=== PATIENT | female | born 1990 ===

== ENCOUNTER 2017-10-21 17:55 | Emergency (ER) | payer BC ==
--- NOTE | 2017-10-21 18:29 | UC ---
Back Pain HPI - HPI Summary HPI Summary: Pt presents with lower back numbness radiating down left leg for the last 11 days. She tells me that she gave vaginally 11 days ago and during labor underwent a spinal epidural. The first two or three days she had lower back pain that has subsided. But ever since has had numbness to her lower back around the site of the injection, into her left buttocks, and down her left leg - also has noticed her left foot is not flexing upwards as strongly as her right. Her numbness and foot weakness have been improving each day, but she is concerned about the numbness overall. She was seen in the ED last week for this and was told it was a muscle spasm or due to the epidural. Denies fever, chills , pain, dysuria, loss of bladder/bowel control, saddle anesthesia, headache, or dizziness. - History of Current Complaint Stated Complaint: BACK PAIN Time Seen by Provider: 10/21/17 18:29 Hx Obtained From: Patient ?: No Onset/Duration: Sudden Onset Timing: Constant Severity Currently: None - Allergies/Home Medications Allergies/Adverse Reactions: Allergies Allergy/AdvReac Type Severity Reaction Status Date / Time amoxicillin Allergy Rash Verified 10/21/17 18:47 Home Medications: Home Medications NK [No Home Medications Reported] 10/21/17 [History Confirmed 10/21/17] PMH/Surg Hx/FS Hx/Imm Hx Previously Healthy: Yes - Family History Known Family History: Positive: None - Social History Occupation: Employed Full-time Lives: With Family Alcohol Use: None Substance Use Type: None Smoking Status (MU): Never Smoked Tobacco Have You Smoked in the Last Year: No Review of Systems Constitutional: Negative Skin: Negative Respiratory: Negative Cardiovascular: Negative Gastrointestinal: Negative Genitourinary: Negative Motor: Negative Neurovascular: Negative Musculoskeletal: Negative Neurological: Numbness - Lower back and left leg numbness Psychological: Negative All Other Systems Reviewed And Are Negative: Yes Physical Exam - Summary Physical Exam Summary: GENERAL: NAD. WDWN. No pain distress. SKIN: No rashes, sores, ulcers, masses, lesions. NECK: Supple. FROM. Nontender. No lymphadenopathy. CHEST: CTAB. No r/r/w. No accessory muscle use. Breathing comfortably and in no distress. CV: RRR. Without m/r/g. Pulses intact. Brisk cap refill. MSK: FROM Cervical spine NTTP. Lumbar region NTTP, No vertebral tenderness. Dorsiflexion ROM decreased on left (~45deg) compared to right (~60deg). Plantarflexion intact b/l. Strength 5/5 b/l LEs including dorsiflexion and plantar flexion. Negative SLR b/l. NEURO: Alert. CN II-XII grossly intact. Sensations intact B/L LEs L3-S1, but feel dull L4-L5 left side. Patellar and ankle reflexes intact b/l. PSYCH: Age appropriate behavior. Triage Information Reviewed: Yes Back Pain Course/Dx - Course Course Of Treatment: I suspect her numbness is a result of her recent epidural injection. Her symptoms are improving each day and she is asymptomatic otherwise. Advised try ibuprofen to decrease general inflammation and go schedule a f/u with her OBGYN for recheck within 1 week. Go to ED if fever, chills, increased numbness, or pain. - Differential Dx/Diagnosis Provider Diagnoses: Left leg numbness Discharge - Sign-Out/Discharge Documenting (check all that apply): Discharge - Discharge Plan Condition: Stable Disposition: HOME Patient Education Materials: Lower Back Exercises (ED), Epidural Anesthesia (DC ) Referrals: No Primary Care Phys,NOPCP [Primary Care Provider] - Additional Instructions: If you develop a fever, point tenderness, trouble with bowel/bladder function, shortness of breath, chest pain, new or worsening symptoms - please call your PCP or go to the ED. 1) May try ibuprofen to help decrease inflammation 2) If your symptoms worsen or persist - please go to the ED or contact a Primary doctor for further investigation. - Billing Disposition and Condition Condition: STABLE Disposition: HOME
[2017-10-21 18:40] VITALS: BP 115/81
== END 2017-10-21 19:09 | disposition home or self-care (01) ==
LOC: UCCORT 17:55
DX: R20.0 Anesthesia of skin (principal); Z88.3 Allergy status to other anti-infective agents
CPT/HCPCS: 99201; G0463